=== PATIENT | female | born 1990 | race Caucasian/White ===

== ENCOUNTER 2025-02-20 16:37 | Emergency (ER) | payer MEDICAID, SELFPAY ==
[2025-02-20 16:48] VITALS: BP 106/70; PULSE 82; RESP 16; TEMP 37.1; O2SAT 98
--- NOTE | 2025-02-20 17:23 | PD.EDRME ---
Rapid Medical Screening Exam RME Arrival date/time: 02/20/25 16:37 Chief Complaint: Back Pain/Injury Time Seen by Provider: 02/20/25 16:41 Vital signs: Vital Signs Temperature 98.7 F 02/20/25 16:48 Pulse Rate 82 02/20/25 16:48 Respiratory Rate 16 02/20/25 16:48 Blood Pressure 106/70 02/20/25 16:48 Pulse Oximetry (%) 98 02/20/25 16:48 Oxygen Delivery Method Room Air 02/20/25 16:48 Vital signs reviewed by provider: Yes RME Narrative: 34-year-old female presents to the ED with complaint of left mid back pain, onset today. She denies any heavy lifting or cleaning in the past week however she did move some furniture and do heavy cleaning 2 weeks ago. She has some urinary frequency and dysuria but states this is normal for her when she is on her menstrual period
--- NOTE | 2025-02-20 17:24 | XR_ITS ---
Examination: Thoracic spine 3 views Technique one AP lateral coned lateral upper dorsal spine 3 views Exam date and time: December 2024 1743 hrs. Indications: Onset mid back pain today. Findings: Adequate alignment thoracic vertebral bodies No thoracic fracture Mild to moderate thoracic disc narrowing Minimal thoracic spondylosis Impression: Moderate diffuse thoracic degenerative disc disease
[2025-02-20 18:20] LABS: Collection Type, Urine Clean Catch
[2025-02-20 18:23] LABS: HCG Qualitative,Urine Negative
[2025-02-20 18:24] LABS: Bilirubin,Urine 1+ (Negative); Blood,Urine 1+ (Negative); Clarity,Urine Clear (Clear/Hazy); Color,Urine Drk-Yellow (Lt Yel-Yel); Glucose, Urine Negative (Negative); Ketones,Urine Negative (Negative); Leukocyte Esterase,Urine Negative (Negative); PH,Urine 6.5 (5.0-7.0); Protein,Urine Negative (Neg - Trace); RBC,Urine 3 /hpf (0-3); Specific Gravity,Urine 1.024 (1.001-1.035); Squamous Epithelial Cell,Urine 1 /hpf (0-5); WBC,Urine 4 /hpf (0-5)
[2025-02-20] MEDS: KETOROLAC INJ 60 MG/2 ML VIAL 30 MG IM (19:16)
--- NOTE | 2025-02-20 19:43 | XR_ITS ---
Examination: Abdomen sonogram, Limited Date and time of exam: February 20, 2025 1958 hrs. Indications: Onset right upper abdominal pain beginning this morning Technique: Real-time walker scale transabdominal sonographic images of the upper abdomen obtained. Findings: Contracted gallbladder No gallstones Gallbladder wall 0.24 cm Common bile duct 0.24 cm Pancreatic head 1.7 cm Liver normal size no focal liver lesions Normal hepatopedal portal venous flow Patent IVC Impression: Negative for cholelithiasis, negative for cholecystitis
[2025-02-20 20:06] LABS: Basophils # (Auto) 0.1 Thou/mm3 (0.0-0.2); Basophils % (Auto) 1 % (0-2.5); Eosinophils # (Auto) 0.3 Thou/mm3 (0.0-0.5); Eosinophils % (Auto) 4 % (0-10); Hematocrit 38.4 % (36.0-46.0); Immature Granulocytes % (Auto) 0 % (0-0); Immature Granulocytes Auto 0.02 Thou/mm3 (0.00-0.00); Lymphocytes # (Auto) 1.4 Thou/mm3 (1.0-4.8); Lymphocytes % (Auto) 15 % (10-50); Mean Corpuscular HGB Conc 33.9 g/dl (31.0-37.0); Mean Corpuscular Hemoglobin 30.1 pg (25.0-35.0); Mean Corpuscular Volume 89 fL (80-100); Monocytes # (Auto) 0.4 Thou/mm3 (0.0-0.8); Monocytes % (Auto) 5 % (0-12); Neutrophils # (Auto) 7.2 Thou/mm3 (1.8-7.7); Neutrophils % (Auto) 76 % (37-80); Nucleated Red Blood Cell % 0 /100 WBC (0); Platelet Count 283 Thou/mm3 (140-440); RDW Standard Deviation 39.1 fL (36.4-46.3); Red Blood Count 4.32 Miln/mm3 (4.00-5.20); White Blood Count 9.5 Thou/mm3 (3.6-11.0)
[2025-02-20 20:42] LABS: Alanine Aminotransferase 9 U/L (10-49); Albumin, Serum 4.6 gm/dL (3.5-5.0); Albumin/Globulin Ratio 1.8 (1.2-2.2); Alkaline Phosphatase 60 U/L (46-116); Anion Gap 6 (7-16); Aspartate Amino Transferase 14 U/L (0-34); BUN/Creatinine Ratio 14 Ratio (12-20); Bilirubin,Total 0.5 mg/dL (0.3-1.2); Blood Urea Nitrogen 11 mg/dL (9-23); Calcium 9.5 mg/dL (8.3-10.6); Calcium (Corrected) 9.5 mg/dL (8.5-10.1); Carbon Dioxide 27.6 mMol/L (20.0-31.0); Chloride 105 mMol/L (98-107); Creatinine (Component) 0.8 mg/dL (0.6-1.3); Globulin 2.5 gm/dL (2.3-3.5); Glucose 101 mg/dL (74-106); Lipase 40 U/L (12-53); Osmolality,Calculated 276 (275-295); Potassium 4.3 mMol/L (3.4-5.1); Sodium 139 mMol/L (136-145); Total Protein 7.1 gm/dL (5.7-8.2); eGFR > 60 See Note
[2025-02-20 21:54] LABS: Hepatitis A Antibody IgM Non Reactive (Non React); Hepatitis B Core Antibody IgM Non Reactive (Non React); Hepatitis B Surface Antigen Non Reactive (Non React); Hepatitis C Antibody Non Reactive (Non React)
[2025-02-20 22:07] LABS: Amylase 77 U/L (30-118)
--- NOTE | 2025-02-23 17:45 | PD.EDADULT ---
ED General RME/HPI General Chief complaint: Back Pain/Injury Stated complaint: SEVERE L) BACK PAIN, 9/10; STARTED 2 HRS AGO Time Seen by Provider: 02/20/25 16:41 Arrival date/time: 02/20/25 16:37 RME / HPI RME / HPI narrative: 34-year-old female presents to the ED with complaint of left mid back pain, onset today. She denies any heavy lifting or cleaning in the past week however she did move some furniture and do heavy cleaning 2 weeks ago. She has some urinary frequency and dysuria but states this is normal for her when she is on her menstrual period. Related Data Home Medications ?Medication ?Instructions ?Recorded ?Confirmed ferrous sulfate 325 mg (65 mg 1 caplet PO DAILY 12/23/18 01/27/19 iron) tablet,delayed release vitamins-iron fumarate 27 1 tab PO QDAY 12/23/18 01/27/19 mg iron-folic acid 0.8 mg tablet ( Vitamin) Previous Rx's ?Medication ?Instructions ?Recorded lidocaine 5 % topical patch 1 patch topical Q24H Pain #15 ea 02/20/25 (Lidoderm) meloxicam 15 mg tablet 15 mg PO QDAY Pain #10 tabs 02/20/25 Allergies Allergy/AdvReac Type Severity Reaction Status Date / Time meperidine Allergy Mild Itching Verified 02/20/25 16:40 Review of Systems Review of Systems Systems Reviewed: All systems reviewed, normal except as documented Past Medical History Past Medical History NEUROLOGIC: Negative Neurological Disorders CARDIAC: Negative Cardiac Disorders or Congestive Heart Failure RESPIRATORY: Negative Chronic Obstructive Pulmonary Disease (COPD) GASTROINTESTINAL: Negative Gastrointestinal Disorders or Hepatitis GENITOURINARY: Negative Genitourinary Disorders or Renal Disease REPRODUCTIVE: Positive Previous Pregnancies (x3); Negative Uterine Prolapse MUSCULOSKELETAL: Positive Musculoskeletal Disorders and Scoliosis ENDOCRINE: Negative Endocrine Disorders, Diabetes Mellitus Type 1 or Diabetes Mellitus Type 2 HEMATOLOGIC: Negative Blood Disorders OTHER HISTORY: Positive Hospitalization (childbirth) and Chicken Pox; Negative Autoimmune Disease, Falls, Blood Transfusions, Blood Transfusion Reaction, Anesthesia Reactions, Organ Transplant, Chemotherapy, Radiation Therapy, Hyperbaric Therapy, MRSA, Vancomycin-Resistant Enterococci, Human Immunodeficiency Virus (HIV), Measles, Mumps, Rubella ([place] Measles), Pertussis, Clostridium Difficile or Cancer Family History FAMILY HISTORY: Positive Family Respiratory Disorders (MOTHER HAS COPD AND ASTHMA), Family Cardiac Disorders (Mother-HTN Father-coronary artery disease), Family Cancer (mother-breast cancer) and Family Anesthesia Reaction (FATHER HAD OPEN HEART SX); Negative Family Psychiatric Problems, Family Gastrointestinal Problems or Family Surgery Surgical History SURGICAL: Negative Section or Organ Transplant Social History SMOKING STATUS: Current every day smoker SECOND HAND EXPOSURE: No ED Exam Narrative Physical exam: Alert and oriented 34-year-old female, no acute distress. Vital signs blood pressure 106/70, pulse 82, respirations 16 and nonlabored, temperature 98.7, O2 sat 98% on room air. Lungs are clear, regular rate and rhythm. Abdomen is soft with mild upper abdominal tenderness. No right lower quadrant tenderness. No rebound or guarding. No CVA tenderness. Positive moderate tenderness to the left thoracic paraspinous muscles. No pain with AP or lateral chest compression. Course Course Course Narrative: Labs reveal normal white count of 9.5 with normal H&H and normal platelets. CMP reveals normal sodium, potassium, chloride, CO2 and gap. BUN and creatinine are normal, Glucose is normal at 101, LFTs are normal, amylase and lipase are normal. Acute hepatitis panel nonreactive. Urinalysis reveals clear dark yellow urine with a specific gravity of 1.024 with negative nitrites, negative leukocyte esterase, 1+ blood, 1+ bilirubin 3 RBCs, 4 WBCs, and no bacteria. Urine hCG is negative. Thoracic spine x-ray reveals: Impression: Moderate diffuse thoracic degenerative disc disease. Abdominal ultrasound reveals: Impression: Negative for cholelithiasis, negative for cholecystitis. Patient was given Toradol 30 mg IM. Quality Measures none Orders Category Date Time Status US abdomen limited Stat Exams 02/20/25 19:43 Completed XR thoracic spine 2V Stat Exams 02/20/25 17:24 Completed Amylase Stat Lab 02/20/25 19:40 Completed CBC Stat Lab 02/20/25 19:40 Completed CMP [Comprehensive Metabolic Panel] Stat Lab 02/20/25 19:40 Completed HCG Qualitative,Urine Stat Lab 02/20/25 17:51 Completed Hepatitis Acute Panel Stat Lab 02/20/25 19:40 Completed Lipase Stat Lab 02/20/25 19:40 Completed Urinalysis Stat Lab 02/20/25 17:51 Completed Urine Culture Stat Lab 02/20/25 17:51 Completed Ketorolac Inj [Toradol Inj] Med 02/20/25 17:27 Discontinued 30 mg IM X1 ONE Vital Signs Vital signs: Vital Signs Temperature 98.7 F 02/20/25 16:48 Pulse Rate 82 02/20/25 16:48 Respiratory Rate 16 02/20/25 16:48 Blood Pressure 106/70 02/20/25 16:48 Pulse Oximetry (%) 98 02/20/25 16:48 Oxygen Delivery Method Room Air 02/20/25 16:48 Discharge Plan Plan Patient Disposition: HOME (Self Care) Discharge Disposition comment: Stable and improved Prescriptions/Referrals Prescriptions/Med Rec: New meloxicam 15 mg tablet 15 mg PO QDAY Qty: 10 0RF lidocaine [Lidoderm] 5 % adhesive patch,medicated 1 patch topical Q24H Qty: 15 0RF Rx Instructions: leave on most painful area for up to 12 hrs, then remove No Action Vitamin 27 mg iron- 0.8 mg Tablet 1 tab PO QDAY ferrous sulfate 325 mg (65 mg iron) Tablet,Delayed Release (Dr/Ec) 1 caplet PO DAILY Referrals: No Primary/Family,Physician [Primary Care Provider] - In 1 week Problem List Clinical Impression: Thoracic back pain Patient/Caregiver Discharge Instructions Education Materials: Back Safety: Lifting, ED Back Sprain/Strain Additional Instructions: Follow-up with your primary care physician in 24 to 48 hours. Return to the ED for any new or worsening symptoms. Print Language: Mongolian Stand Alone Forms: [employer]ge Award Info., Patient Portal Info Letter PA/WOOD PREPARATION SUPERVISOR Supervising Physician PA/WOOD PREPARATION SUPERVISOR Supervising Physician: Dr Baliey ALVAREZ Narrative [facility] hospital course: 34-year-old female presents to the ED with complaint of left mid back pain, onset today. She denies any heavy lifting or cleaning in the past week however she did move some furniture and do heavy cleaning 2 weeks ago. She has some urinary frequency and dysuria but states this is normal for her when she is on her menstrual period. Alert and oriented 34-year-old female, no acute distress. Vital signs blood pressure 106/70, pulse 82, respirations 16 and nonlabored, temperature 98.7, O2 sat 98% on room air. Lungs are clear, regular rate and rhythm. Abdomen is soft with mild upper abdominal tenderness. No right lower quadrant tenderness. No rebound or guarding. No CVA tenderness. Positive moderate tenderness to the left thoracic paraspinous muscles. No pain with AP or lateral chest compression. Labs reveal normal white count of 9.5 with normal H&H and normal platelets. CMP reveals normal sodium, potassium, chloride, CO2 and gap. BUN and creatinine are normal, Glucose is normal at 101, LFTs are normal, amylase and lipase are normal. Acute hepatitis panel nonreactive. Urinalysis reveals clear dark yellow urine with a specific gravity of 1.024 with negative nitrites, negative leukocyte esterase, 1+ blood, 1+ bilirubin 3 RBCs, 4 WBCs, and no bacteria. Urine hCG is negative. Thoracic spine x-ray reveals: Impression: Moderate diffuse thoracic degenerative disc disease. Abdominal ultrasound reveals: Impression: Negative for cholelithiasis, negative for cholecystitis. Patient was given Toradol 30 mg IM. She was discharged home in stable and improved condition with prescriptions for Lidoderm patches as well as meloxicam. She was advised to follow-up with her primary care physician in 24 to 48 hours. Procedures done or offered: Patient was given Toradol 30 mg IM. Clinical Information Provided by patient Medical Records Reviewed None Meds/Rx Considered, not Ordered None Labs/Rad/Tests considered, not Ordered None Chronic Illness/Social Conditions which may negatively complicate care or outcome(s)-explain: None or not applicable EKG EKG not done Lab Interpretation Labs: interpreted by sd Lab(s) interpretation(s): Labs reveal normal white count of 9.5 with normal H&H and normal platelets. CMP reveals normal sodium, potassium, chloride, CO2 and gap. BUN and creatinine are normal, Glucose is normal at 101, LFTs are normal, amylase and lipase are normal. Acute hepatitis panel nonreactive. Urinalysis reveals clear dark yellow urine with a specific gravity of 1.024 with negative nitrites, negative leukocyte esterase, 1+ blood, 1+ bilirubin 3 RBCs, 4 WBCs, and no bacteria. Urine hCG is negative. Imaging Imaging interpretation: see narrative above Radiology reports / interpretation(s): Thoracic spine x-ray reveals: Impression: Moderate diffuse thoracic degenerative disc disease. Abdominal ultrasound reveals: Impression: Negative for cholelithiasis, negative for cholecystitis. Medication Administration(s) Medication Administration History Discontinued Medications Ketorolac Tromethamine (Ketorolac Inj 60 Mg/2 Ml Vial) 30 mg IM X1 ONE Stop: 02/20/25 17:28 Last Admin: 02/20/25 19:16 Dose: 30 mg Documented By: KRYSTIN Toradol 30 mg IM. Diagnosis Differential diagnosis: Back strain, costochondritis, pyelonephritis, renal calculi, pancreatitis Differential dx and/or dx ruled out: Pyelonephritis, pancreatitis, renal calculi Most likely dx, and/or detailed dx discussion: Thoracic back strain Dispositon Disposition: Discharge Home Disposition comments: Patient is stable for discharge
== END 2025-02-20 21:25 | disposition home or self-care (01) ==
PROVIDERS: Physician Assistant; Emergency Provider Family Medicine
DX: M51.34 Other intervertebral disc degeneration, thoracic region (principal); R10.11 Right upper quadrant pain; R35.0 Frequency of micturition; R30.0 Dysuria
CPT/HCPCS: 36415; 72070; 72072; 76705; 80053; 80074; 81001; 81025; 82150; 83690; 85025; 87077; 87086; 87186; 96372; 99284; J1885